=== PATIENT | female | born 1945 | race Hispanic/Latino ===

== ENCOUNTER 2017-06-19 13:16 | Emergency (ER) | payer MEDICARE, OTHER ==
[2017-06-19 13:16] VITALS: BMI 28.0
[2017-06-19] MEDS ORDERED: Azithromycin 500mg/250ML NS 500 MG/250 ML BAG IV STA (14:42)
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
[2017-06-19] MEDS ORDERED: MethylPREDNISolone 40 mg Vial IVP STA (14:43)
[2017-06-19] MEDS ORDERED: cefTRIAXone IV 1 gm in Dextros 50 ML IV STA (14:43)
[2017-06-19] MEDS ORDERED: Azithromycin 500mg/250ML NS 500 MG/250 ML BAG IVPB ONE (15:09)
[2017-06-19] MEDS ORDERED: cefTRIAXone IV 1 gm in Dextros 50 ML IVPB ONE (15:09)
[2017-06-19] MEDS ORDERED: MethylPREDNISolone 40 mg Vial ONE (15:10)
[2017-06-19] MEDS ORDERED: Albuterol-Ipratrop 3 mg / 0.5 (3 ml) UD ONE ×2 (15:10→15:33)
[2017-06-19 15:18] LABS: BASO # 0.1 K/uL (0.0-0.2); BASO % 0.7 % (0.0-2.0); EOS # 0.1 K/uL (0.0-0.7); EOS % 1.3 % (0.0-4.0); HEMATOCRIT 36.5 % (34.0-47.0); LYMPH # 1.8 K/uL (1.0-4.3); LYMPH % 16.5 % (20.0-40.0); MEAN CORPUSCULAR HGB CONC 33.3 g/dL (33.0-37.0); MEAN PLATELET VOLUME 7.6 fL (7.2-11.7); MONO # 0.6 K/uL (0.0-0.8); MONO % 5.4 % (0.0-10.0); RED CELL DISTRIBUTION WIDTH 12.9 % (11.5-14.5); WHITE BLOOD COUNT 10.6 K/uL (4.8-10.8)
[2017-06-19 15:20] LABS: MEAN CELL VOLUME 87.1 fL (81.0-99.0)
--- NOTE | 2017-06-19 15:24 | RAD ---
HISTORY: COMPARISON: 10/18/2015. TECHNIQUE: Chest PA and lateral FINDINGS: LINES AND TUBES: None. LUNG AND PLEURA: The lungs are hyperinflated and there is peribronchial thickening with chronic changes in both lungs. No focal consolidation. . There are no pleural effusions or pneumothorax. HEART AND MEDIASTINUM: The heart is not enlarged. Atherosclerotic aortic arch calcifications are present. The hilar and mediastinal contours are within normal limits. SKELETAL STRUCTURES: The bony structures are within normal limits for the patient's age. VISUALIZED UPPER ABDOMEN: Normal. OTHER FINDINGS: None. IMPRESSION: No active pulmonary disease. COPD.
[2017-06-19] MEDS: Albuterol-Ipratrop 3 mg / 0.5 (3 ml) UD IH SCH ×2 (15:27→15:46)
[2017-06-19 15:31] LABS: CHLORIDE 91 mmol/L (98-107)
[2017-06-19 15:32] LABS: POTASSIUM 4.2 mmol/L (3.6-5.2); SODIUM 133 mmol/L (132-148)
[2017-06-19 15:35] LABS: BLOOD UREA NITROGEN 15 mg/dL (7-17); CALCIUM 10.3 mg/dl (8.6-10.4); CARBON DIOXIDE 29 mmol/L (22-30); GFR AFRICAN-AMERICAN > 60; GLUCOSE,RANDOM 305 mg/dL (65-105)
[2017-06-19 17:16] VITALS: RESP 18
[2017-06-19 18:56] VITALS: BP 160/74; PULSE 99; TEMP 98.4; O2SAT 97
--- NOTE | 2017-06-23 21:49 | CARD ---
APPROVED REPORT EKG Measurement Heart [id number] <Conclusion> Sinus tachycardia
== END 2017-06-19 18:45 | disposition home or self-care (01) ==
LOC: C.ER 13:16
DX: J44.9 Chronic obstructive pulmonary disease, unspecified (principal); I10 Essential (primary) hypertension
CPT/HCPCS: 71020; 80048; 85025; 87040; 94640; 96365; 96367; 96375; 99284; J0456; J0696; J2920

== ENCOUNTER 2017-08-16 22:26 | Observation (INO) | payer MEDICARE ==
[2017-08-16 22:26] VITALS: BMI 28.0
[2017-08-16] MEDS ORDERED: Dextrose 50% SYRINGE Inj (50 ml) ONE (22:32)
[2017-08-16] MEDS ORDERED: Dextrose 5%/0.9% NS 1,000 ML IV ONE ×2 (22:34→22:48)
[2017-08-16] MEDS ORDERED: Dextrose 50% SYRINGE Inj (50 ml) IV STA (22:48)
[2017-08-16 23:05] LABS: BASO # 0.1 K/uL (0.0-0.2); BASO % 0.9 % (0.0-2.0); EOS # 0.3 K/uL (0.0-0.7); HEMATOCRIT 37.9 % (34.0-47.0); LYMPH # 1.4 K/uL (1.0-4.3); LYMPH % 10.4 % (20.0-40.0); MEAN CELL VOLUME 88.9 fL (81.0-99.0); MEAN CORPUSCULAR HEMOGLOBIN 29.8 pg (27.0-31.0); MEAN CORPUSCULAR HGB CONC 33.5 g/dL (33.0-37.0); MEAN PLATELET VOLUME 8.1 fL (7.2-11.7); MONO # 0.2 K/uL (0.0-0.8); MONO % 1.7 % (0.0-10.0); RED CELL DISTRIBUTION WIDTH 15.4 % (11.5-14.5); WHITE BLOOD COUNT 13.8 K/uL (4.8-10.8)
[2017-08-16 23:21] LABS: CHLORIDE 102 mmol/L (98-107); POTASSIUM 3.1 mmol/L (3.6-5.2); SODIUM 144 mmol/L (132-148)
[2017-08-16 23:23] LABS: AST/SGOT 30 U/L (14-36); BILIRUBIN,TOTAL 0.4 mg/dL (0.2-1.3); CARBON DIOXIDE 24 mmol/L (22-30); GFR AFRICAN-AMERICAN > 60
[2017-08-16 23:24] LABS: ALB/GLOB RATIO 1.3 (1.0-2.1); ALKALINE PHOSPHATASE 50 U/L (38-126); ALT/SGPT 26 U/L (9-52); BLOOD UREA NITROGEN 21 mg/dL (7-17); CALCIUM 10.2 mg/dl (8.6-10.4); TOTAL PROTEIN 7.8 g/dL (6.3-8.3)
[2017-08-16 23:41] LABS: GLUCOSE,RANDOM 21 mg/dL (65-105)
--- NOTE | 2017-08-17 01:57 | C.PDOC ---
History Of Present Illness 71 year old female presents to the ED for evaluation of low blood sugar and lethargy beginning just prior to arrival. Patient states she took her diabetes medications today but "passed out on the sidewalk" due to low blood sugar. Upon accucheck prior to arrival, it was less than two. Patient denies fever, nausea, vomiting, diarrhea, or other complaints at this time. Chief Complaint (Nursing): Altered Mental Status History Per: Patient History/Exam Limitations: None Onset/Duration Of Symptoms: Hrs Onset Of Symptoms: Cannot Confirm Onset Current Symptoms Are (Timing): Still Present Usual Baseline: Alert Oriented Use Of Anticoag/Antiplatelets: No Recent travel outside of the [place]: No Additional History Per: Family Associated Symptoms: denies: Fever, Chills, Sweating Past Medical History Reviewed: Historical Data, Nursing Documentation, Vital Signs Vital Signs: Last Vital Signs Temp 97.5 F L 08/17/17 01:33 Pulse 94 H 08/17/17 01:33 Resp 16 08/17/17 00:22 BP 125/57 L 08/17/17 01:05 Pulse Ox 99 08/17/17 01:57 - Medical History PMH: Arthritis, COPD, Diabetes, Emphysema, HTN, Hypercholesterolemia Surgical History: Denies: Pacemaker Family History: States: Unknown Family Hx - Social History Hx Tobacco Use: No Hx Alcohol Use: No Hx Substance Use: No - Immunization History Hx Tetanus Toxoid Vaccination: No Hx Influenza Vaccination: Yes Hx Pneumococcal Vaccination: No Review Of Systems Constitutional: Positive for: Other (lethargic ). Negative for: Fever, Chills Cardiovascular: Negative for: Chest Pain, Palpitations Respiratory: Negative for: Cough, Shortness of Breath Gastrointestinal: Negative for: Nausea, Vomiting, Abdominal Pain, Diarrhea Neurological: Positive for: Other (LOC) Physical Exam - Physical Exam Appears: Non-toxic, No Acute Distress Skin: Warm, Dry Head: Atraumatic, Normacephalic Eye(s): bilateral: Normal Inspection, PERRL, EOMI Oral Mucosa: Moist Neck: Normal ROM, Supple Chest: Symmetrical, No Deformity Cardiovascular: Rhythm Regular, No Murmur Respiratory: Normal Breath Sounds, No Rales, No Rhonchi, No Wheezing Gastrointestinal/Abdominal: Soft, No Tenderness, No Distention, No Guarding, No Rebound Extremity: Normal ROM, No Tenderness Neurological/Psych: Oriented x3, Normal Speech, Normal Cognition, Normal Motor, Normal Sensation ED Course And Treatment - Laboratory Results Result Diagrams: 08/16/17 22:54 08/16/17 22:54 O2 Sat by Pulse Oximetry: 99 (room air ) Progress Note: EKG and blood work were ordered. Patient was given Ecotrin, Lovenox, Protonix, Tylenol, Prednisone, dextrose, and tessalon perles. Disposition Discussed With Dr.: Elpidio Dos Santos Doctor Will See Patient In The: Hospital Counseled Patient/Family Regarding: Diagnosis - Disposition Disposition: HOSPITALIZED Disposition Time: 01:56 Condition: STABLE Forms: [facility] (Chilean) - POA Present On Arrival: None - Clinical Impression Clinical Impression: Hypoglycemia secondary to sulfonylurea - Scribe Statement The provider has reviewed the documentation as recorded by the Scribe Peggy Escobar All medical record entries made by the Scribe were at my direction and personally dictated by me. I have reviewed the chart and agree that the record accurately reflects my personal performance of the history, physical exam, medical decision making, and the department course for this patient. I have also personally directed, reviewed, and agree with the discharge instructions and disposition.
[2017-08-17] MEDS: Dextrose 5%/0.45% NS 1,000 ML IV SCH ×2 (03:31→21:55)
[2017-08-17] MEDS ORDERED: Dextrose 50% SYRINGE Inj (50 ml) IV STA (06:30)
[2017-08-17] MEDS ORDERED: Dextrose 50% SYRINGE Inj (50 ml) ONE (06:31)
[2017-08-17] MEDS ORDERED: Enoxaparin 30 mg Syringe SC SCH (10:00)
[2017-08-17] MEDS ORDERED: Home Med 1 UNIT (Simvastatin [Simvastatin] 10 MG) PO SCH (10:00)
[2017-08-17] MEDS ORDERED: Home Med 1 UNIT (Fenofibrate [Triglide] 160 MG) PO SCH (10:00)
[2017-08-17] MEDS: Pantoprazole 40 mg EC Tab PO SCH (10:17)
[2017-08-17] MEDS: Enoxaparin 40 mg Syringe SC SCH (10:40)
[2017-08-17] MEDS ORDERED: Potassium Chloride 20 mEq ER Tab PO ONE (11:00)
[2017-08-17] MEDS: (Novolog) Insulin Aspart, Recombinant 100 u/ml 10 ml vial SC SCH ×2 (17:48→21:52)
--- NOTE | 2017-08-17 20:22 | CP.PCM.HP ---
Past Patient History - Past Medical History & Family History Past Medical History?: Yes - Past Social History Smoking Status: Former Smoker - CARDIAC Hx Hypercholesterolemia: Yes Hx Hypertension: Yes Hx Pacemaker: No - PULMONARY Hx Chronic Obstructive Pulmonary Disease (COPD): Yes Hx Emphysema: Yes - NEUROLOGICAL Hx Paralysis: No - ENDOCRINE/METABOLIC Hx Diabetes Mellitus Type 2: Yes - HEMATOLOGICAL/ONCOLOGICAL Hx Blood Transfusions: No - MUSCULOSKELETAL/RHEUMATOLOGICAL Hx Arthritis: Yes Hx Falls: Yes (prior to admission) - PSYCHIATRIC Hx Substance Use: No - SURGICAL HISTORY Hx Surgeries: Yes Hx Valve Replacement: Yes Other/Comment: Cardiac 04/2017 - ANESTHESIA Hx Anesthesia: Yes Hx Anesthesia Reactions: No Hx Malignant Hyperthermia: No Meds Allergies/Adverse Reactions: Allergies Allergy/AdvReac Type Severity Reaction Status Date / Time No Known Allergies Allergy Unverified 02/26/14 20:11 Physical Exam - Constitutional Appears: Well - Head Exam Head Exam: ATRAUMATIC, NORMAL INSPECTION, NORMOCEPHALIC - Eye Exam Eye Exam: EOMI, Normal appearance, PERRL Pupil Exam: NORMAL ACCOMODATION, PERRL - ENT Exam ENT Exam: Mucous Membranes Moist, Normal Exam - Neck Exam Neck exam: Positive for: Normal Inspection - Respiratory Exam Respiratory Exam: Decreased Breath Sounds - Cardiovascular Exam Cardiovascular Exam: REGULAR RHYTHM, +S1, +S2 - GI/Abdominal Exam GI & Abdominal Exam: Diminished Bowel Sounds, Soft - Rectal Exam Rectal Exam: Deferred Results - Vital Signs Recent Vital Signs: Last Vital Signs Temp 98 F 08/17/17 16:52 Pulse 90 08/17/17 16:52 Resp 18 08/17/17 16:52 BP 191/97 H 08/17/17 16:52 Pulse Ox 97 08/17/17 16:52 - Labs Result Diagrams: 08/16/17 22:54 08/16/17 22:54 Labs: Laboratory Results - last 24 hr 08/16/17 08/16/17 08/16/17 22:54 22:54 23:27 WBC 13.8 H RBC 4.26 Hgb 12.7 Hct 37.9 MCV 88.9 MCH 29.8 MCHC 33.5 RDW 15.4 H Plt Count 373 MPV 8.1 Neut % (Auto) 85.0 H Lymph % (Auto) 10.4 L [place] % (Auto) 1.7 Eos % (Auto) 2.0 Baso % (Auto) 0.9 Neut # 11.7 H Lymph # 1.4 [place] # 0.2 Eos # 0.3 Baso # 0.1 Sodium 144 Potassium 3.1 L Chloride 102 Carbon Dioxide 24 Anion Gap 21 H BUN 21 H Creatinine 0.9 Est GFR ( Amer) > 60 Est GFR (Non-Af Amer) > 60 POC Glucose (mg/dL) Random Glucose 21 L* D Calcium 10.2 Total Bilirubin 0.4 AST 30 ALT 26 Alkaline Phosphatase 50 Troponin I < 0.0120 Total Protein 7.8 Albumin 4.4 Globulin 3.4 Albumin/Globulin Ratio 1.3 08/17/17 08/17/17 08/17/17 00:45 03:08 06:27 WBC RBC Hgb Hct MCV MCH MCHC RDW Plt Count MPV Neut % (Auto) Lymph % (Auto) [place] % (Auto) Eos % (Auto) Baso % (Auto) Neut # Lymph # [place] # Eos # Baso # Sodium Potassium Chloride Carbon Dioxide Anion Gap BUN Creatinine Est GFR ( Amer) Est GFR (Non-Af Amer) POC Glucose (mg/dL) 143 H 120 H 38 L* Random Glucose Calcium Total Bilirubin AST ALT Alkaline Phosphatase Troponin I Total Protein Albumin Globulin Albumin/Globulin Ratio 08/17/17 08/17/17 08/17/17 06:48 08:41 11:59 WBC RBC Hgb Hct MCV MCH MCHC RDW Plt Count MPV Neut % (Auto) Lymph % (Auto) [place] % (Auto) Eos % (Auto) Baso % (Auto) Neut # Lymph # [place] # Eos # Baso # Sodium Potassium Chloride Carbon Dioxide Anion Gap BUN Creatinine Est GFR ( Amer) Est GFR (Non-Af Amer) POC Glucose (mg/dL) 208 H 265 H 290 H Random Glucose Calcium Total Bilirubin AST ALT Alkaline Phosphatase Troponin I Total Protein Albumin Globulin Albumin/Globulin Ratio 08/17/17 16:49 WBC RBC Hgb Hct MCV MCH MCHC RDW Plt Count MPV Neut % (Auto) Lymph % (Auto) [place] % (Auto) Eos % (Auto) Baso % (Auto) Neut # Lymph # [place] # Eos # Baso # Sodium Potassium Chloride Carbon Dioxide Anion Gap BUN Creatinine Est GFR ( Amer) Est GFR (Non-Af Amer) POC Glucose (mg/dL) 449 H* Random Glucose Calcium Total Bilirubin AST ALT Alkaline Phosphatase Troponin I Total Protein Albumin Globulin Albumin/Globulin Ratio
[2017-08-17] MEDS: Rosuvastatin Calcium 2.5 mg Tab PO SCH (21:52)
[2017-08-18 00:04] VITALS: RESP 20
[2017-08-18] MEDS: Dextrose 5%/0.45% NS 1,000 ML IV SCH (02:40)
[2017-08-18] MEDS: (Novolog) Insulin Aspart, Recombinant 100 u/ml 10 ml vial SC SCH ×4 (08:59→22:04)
[2017-08-18] MEDS ORDERED: Enoxaparin 40 mg Syringe SC SCH (10:00)
[2017-08-18] MEDS: Pantoprazole 40 mg EC Tab PO SCH (10:33)
[2017-08-18] MEDS: Enoxaparin 40 mg Syringe SC SCH (10:35)
--- NOTE | 2017-08-18 19:42 | CP.PCM.PN ---
Subjective - Date & Time of Evaluation Date of Evaluation: 08/11/17 Time of Evaluation: 10:20 - Subjective Subjective: clinically same Objective - Vital Signs/Intake and Output Vital Signs (last 24 hours): Temp Pulse Resp BP Pulse Ox 97.8 F 84 20 184/81 H 95 08/18/17 13:25 08/18/17 13:55 08/18/17 13:25 08/18/17 13:55 08/18/17 13:25 Intake and Output: 08/18/17 08/19/17 18:59 06:59 Intake Total 1120 Balance 1120 - Medications Medications: Current Medications Amlodipine Besylate (Norvasc) 10 mg PO DAILY [facility] Last Admin: 08/18/17 14:20 Dose: 10 mg Aspirin (Ecotrin) 81 mg PO DAILY [facility] Last Admin: 08/18/17 10:34 Dose: 81 mg Azithromycin (Zithromax) 250 mg PO DAILY [facility] Last Admin: 08/18/17 10:34 Dose: 250 mg Benzonatate (Tessalon Perles) 200 mg PO TID PRN PRN Reason: Cough Clonidine HCl (Catapres) 0.1 mg PO Q8 PRN PRN Reason: SBP >180 Last Admin: 08/18/17 17:13 Dose: 0.1 mg Enoxaparin Sodium (Lovenox) 40 mg SC DAILY [facility] Last Admin: 08/18/17 10:35 Dose: 40 mg Fenofibrate (Tricor) 145 mg PO DAILY [facility] Last Admin: 08/18/17 10:34 Dose: 145 mg Glipizide (Glucotrol) 10 mg PO BID [facility] Last Admin: 08/18/17 17:13 Dose: 10 mg Insulin Aspart (Novolog) 0 unit SC [facility] PRN Reason: Protocol Last Admin: 08/18/17 17:25 Dose: 3 unit Metformin HCl (Glucophage) 1,000 mg PO BID [facility] Last Admin: 08/18/17 17:13 Dose: 1,000 mg Metoprolol Tartrate (Lopressor) 50 mg PO DAILY [facility] Last Admin: 08/18/17 10:33 Dose: 50 mg Pantoprazole Sodium (Protonix Ec Tab) 40 mg PO DAILY [facility] Last Admin: 08/18/17 10:33 Dose: 40 mg Pneumococcal Polyvalent Vaccine (Pneumovax 23 Vaccine) 0.5 ml IM .ONCE ONE Stop: 08/19/17 10:01 Prednisone (Prednisone Tab) 60 mg PO DAILY [facility] Last Admin: 08/18/17 10:34 Dose: 60 mg Rosuvastatin Calcium (Crestor) 2.5 mg PO HS [facility] Last Admin: 08/17/17 21:52 Dose: 2.5 mg Sitagliptin Phosphate (Januvia) 100 mg PO DAILY [facility] Last Admin: 08/18/17 10:34 Dose: 100 mg - Labs Labs: 08/16/17 22:54 08/16/17 22:54 - Constitutional Appears: Well - Head Exam Head Exam: ATRAUMATIC, NORMAL INSPECTION, NORMOCEPHALIC - Eye Exam Eye Exam: EOMI, Normal appearance, PERRL Pupil Exam: NORMAL ACCOMODATION, PERRL - ENT Exam ENT Exam: Mucous Membranes Moist, Normal Exam - Neck Exam Neck Exam: Full ROM, Normal Inspection. absent: Lymphadenopathy - Respiratory Exam Respiratory Exam: Decreased Breath Sounds - Cardiovascular Exam Cardiovascular Exam: REGULAR RHYTHM, +S1, +S2 - GI/Abdominal Exam GI & Abdominal Exam: Soft, Diminished Bowel Sounds - Rectal Exam Rectal Exam: Deferred
[2017-08-18] MEDS: Rosuvastatin Calcium 2.5 mg Tab PO SCH (21:57)
[2017-08-19 08:07] VITALS: O2SAT 97
[2017-08-19 08:10] VITALS: BP 121/60; PULSE 77; TEMP 97.5
[2017-08-19] MEDS: (Novolog) Insulin Aspart, Recombinant 100 u/ml 10 ml vial SC SCH ×2 (08:30→12:39)
[2017-08-19] MEDS ORDERED: Pneumococcal 23-Valent Vaccine IM ONE (10:00)
[2017-08-19] MEDS: Pantoprazole 40 mg EC Tab PO SCH (10:55)
[2017-08-19] MEDS: Enoxaparin 40 mg Syringe SC SCH (11:00)
[2017-08-19 11:43] LABS: BASO % 0.2 % (0.0-2.0); EOS % 0.2 % (0.0-4.0); HEMATOCRIT 32.9 % (34.0-47.0); LYMPH # 1.8 K/uL (1.0-4.3); LYMPH % 22.3 % (20.0-40.0); MEAN CELL VOLUME 88.3 fL (81.0-99.0); MEAN CORPUSCULAR HEMOGLOBIN 30.6 pg (27.0-31.0); MEAN CORPUSCULAR HGB CONC 34.7 g/dL (33.0-37.0); MEAN PLATELET VOLUME 8.1 fL (7.2-11.7); MONO # 0.6 K/uL (0.0-0.8); MONO % 7.9 % (0.0-10.0); RED CELL DISTRIBUTION WIDTH 15.3 % (11.5-14.5); WHITE BLOOD COUNT 8.1 K/uL (4.8-10.8)
[2017-08-19 12:11] LABS: CHLORIDE 94 mmol/L (98-107); SODIUM 134 mmol/L (132-148)
[2017-08-19 12:13] LABS: BILIRUBIN,TOTAL 0.4 mg/dL (0.2-1.3); GFR AFRICAN-AMERICAN > 60
[2017-08-19 12:14] LABS: ALB/GLOB RATIO 1.2 (1.0-2.1); ALKALINE PHOSPHATASE 50 U/L (38-126); ALT/SGPT 46 U/L (9-52); AST/SGOT 30 U/L (14-36); BLOOD UREA NITROGEN 25 mg/dL (7-17); CARBON DIOXIDE 26 mmol/L (22-30); GLUCOSE,RANDOM 258 mg/dL (65-105); TOTAL PROTEIN 7.1 g/dL (6.3-8.3)
[2017-08-19 12:15] LABS: CALCIUM 9.1 mg/dl (8.6-10.4)
--- NOTE | 2017-08-19 12:54 | CP.PCM.PN ---
Subjective - Date & Time of Evaluation Date of Evaluation: 08/19/17 Time of Evaluation: 09:00 - Subjective Subjective: PGY3 on medicine Dr. Dos Santos service: Pt seen and examined at bedside this morning. Pt reports resolution of her symptoms. No acute events overnight. No other complaints at this moment. Pt reports taking unkonwn insulin at home 30U once a day. Objective - Vital Signs/Intake and Output Vital Signs (last 24 hours): Temp Pulse Resp BP Pulse Ox 97.5 F L 77 20 121/60 97 08/19/17 08:00 08/19/17 08:00 08/19/17 08:00 08/19/17 08:00 08/19/17 08:00 Intake and Output: 08/19/17 08/19/17 06:59 18:59 Intake Total 500 Balance 500 - Medications Medications: Current Medications Amlodipine Besylate (Norvasc) 10 mg PO DAILY [facility] Last Admin: 08/19/17 10:55 Dose: 10 mg Aspirin (Ecotrin) 81 mg PO DAILY [facility] Last Admin: 08/19/17 11:00 Dose: 81 mg Azithromycin (Zithromax) 250 mg PO DAILY [facility] Last Admin: 08/19/17 11:00 Dose: 250 mg Benzonatate (Tessalon Perles) 200 mg PO TID PRN PRN Reason: Cough Clonidine HCl (Catapres) 0.1 mg PO Q8 PRN PRN Reason: SBP >180 Last Admin: 08/18/17 17:13 Dose: 0.1 mg Enoxaparin Sodium (Lovenox) 40 mg SC DAILY [facility] Last Admin: 08/19/17 11:00 Dose: 40 mg Fenofibrate (Tricor) 145 mg PO DAILY [facility] Last Admin: 08/19/17 11:00 Dose: 145 mg Glipizide (Glucotrol) 10 mg PO BID [facility] Last Admin: 08/19/17 10:55 Dose: 10 mg Insulin Aspart (Novolog) 0 unit SC ACHS [facility] PRN Reason: Protocol Last Admin: 08/19/17 08:30 Dose: 2 unit Metformin HCl (Glucophage) 1,000 mg PO BID [facility] Last Admin: 08/19/17 11:00 Dose: 1,000 mg Metoprolol Tartrate (Lopressor) 50 mg PO Q12H [facility] Last Admin: 08/19/17 10:55 Dose: 50 mg Pantoprazole Sodium (Protonix Ec Tab) 40 mg PO DAILY [facility] Last Admin: 08/19/17 10:55 Dose: 40 mg Rosuvastatin Calcium (Crestor) 2.5 mg PO HS [facility] Last Admin: 08/18/17 21:57 Dose: 2.5 mg Sitagliptin Phosphate (Januvia) 100 mg PO DAILY [facility] Last Admin: 08/19/17 10:55 Dose: 100 mg - Labs Labs: 08/19/17 11:28 08/19/17 11:28 - Constitutional Appears: Non-toxic, No Acute Distress - Head Exam Head Exam: NORMOCEPHALIC - Eye Exam Eye Exam: Normal appearance Pupil Exam: NORMAL ACCOMODATION - ENT Exam ENT Exam: Mucous Membranes Moist - Respiratory Exam Respiratory Exam: Clear to Ausculation Bilateral, NORMAL BREATHING PATTERN. absent: Rales, Wheezes - Cardiovascular Exam Cardiovascular Exam: REGULAR RHYTHM, +S1, +S2. absent: Gallop, Rubs - GI/Abdominal Exam GI & Abdominal Exam: Soft, Normal Bowel Sounds. absent: Tenderness - Neurological Exam Neurological Exam: Alert, Awake, Oriented x3 - Psychiatric Exam Psychiatric exam: Normal Mood - Skin Skin Exam: Dry, Intact Assessment and Plan - Assessment and Plan (Free Text) Assessment: Hypoglycemia Resolved. HTN Norvasc 10mg PO daily. Clonidine 0.1mg PO q8H PRN SBP> 180. DM A1c 9.7 RISS, accucheck. Januvia 100mg PO daily. Glipizide 10mg PO BID. Metformin 1000mg PO BID. Per [facility], pt also takes Humalog Mix 30U in the morning. Pt said she gets other medications from [place] [facility]. HLD Crestor 2.5mg PO HS. Tricor 145mg PO daily.
== END 2017-08-19 15:10 | disposition home or self-care (01) ==
LOC: C.ER 22:26 → C.9E 08-17 02:01 → C.5S 08-17 08:28
PROVIDERS: ADMIT Internal Medicine Nephrology; ATTEND Internal Medicine Nephrology
DX: E11.649 Type 2 diabetes mellitus with hypoglycemia without coma (principal); E78.5 Hyperlipidemia, unspecified; I10 Essential (primary) hypertension; J44.9 Chronic obstructive pulmonary disease, unspecified; Z79.4 Long term (current) use of insulin; Z87.891 Personal history of nicotine dependence; Z95.2 Presence of prosthetic heart valve
CPT/HCPCS: 36415; 80053; 82948; 83036; 84484; 85025; 99285; G0378; J1650; J7042